=== PATIENT | female | born 1995 | race African-American/Black ===

== ENCOUNTER 2017-10-22 12:06 | Emergency (ER) | payer OTHER ==
[~2017-10-22] VITALS: Ht 175.3 cm; Wt 58.0 kg
[2017-10-22] MEDS ORDERED: LEVETIRACETAM 500MG TABLET PO ONE (12:45)
[2017-10-22 13:19] LABS: BASOPHILS % 0.3 % (0.0-2.0); EOSINOPHILS % 0.3 % (0.0-5.0); HEMATOCRIT. 38.3 % (36.0-48.0); LYMPHOCYTES % 22.9 % (20.0-50.0); MEAN CORPUSCULAR HEMOGLOBIN 31.3 pg (28.0-32.0); MEAN PLATELET VOLUME 9.7 fl (7.4-10.4); MONOCYTES % 9.8 % (2.0-8.0); NEUTROPHILS % 66.7 % (40.0-76.0); PLATELET 159 x1000/uL (130-400); RED BLOOD CELL COUNT 4.17 mill/uL (4.2-5.4); RED CELL DISTRIBUTION WIDTH 12.6 % (11.6-14.6)
[2017-10-22 13:26] LABS: CHLORIDE 109 mEq/L (98-107)
[2017-10-22 13:32] LABS: ETHANOL BLOOD < 10 mg/dL
[2017-10-22 13:35] LABS: CREATINE KINASE 134 IU/L (26-192)
[2017-10-22 13:42] LABS: *AMPHETAMINES SCREEN URINE NEGATIVE (NEGATIVE)
[2017-10-22 13:43] LABS: *BARBITURATES SCREEN URINE NEGATIVE (NEGATIVE); *BENZODIAZEPINES SCREEN URINE NEGATIVE (NEGATIVE); *COCAINE SCREEN URINE NEGATIVE (NEGATIVE); METHADONE URINE SCREEN NEGATIVE (NEGATIVE); OPIATES URINE SCREEN NEGATIVE (NEGATIVE); PHENCYCLIDINE URINE SCREEN NEGATIVE (NEGATIVE)
[2017-10-22 13:44] LABS: CANNABINOID URINE SCREEN NEGATIVE (NEGATIVE)
[2017-10-22 13:46] LABS: CARBAMAZEPINE < 0.5 ug/mL (4-12); PHENOBARBITAL < 2.1 ug/mL (15.0-40.0); VALPROIC ACID < 3.0 ug/mL (50-100)
[2017-10-22 13:47] LABS: HCG SCREEN NEGATIVE
[2017-10-22 15:49] VITALS: BP 110/60
== END 2017-10-22 16:23 | disposition home or self-care (01) ==
LOC: ER 12:06
DX: G40.909 Epilepsy, unspecified, not intractable, without status epilepticus (principal); G93.49 Other encephalopathy; R03.0 Elevated blood-pressure reading, without diagnosis of hypertension; E86.0 Dehydration; D49.6 Neoplasm of unspecified behavior of brain; E05.90 Thyrotoxicosis, unspecified without thyrotoxic crisis or storm
CPT/HCPCS: 36415; 70450; 80053; 80156; 80165; 80184; 80185; 80305; 82550; 84443; 84703; 85025; 99285; G0482